=== PATIENT | female | born 1970 | race Caucasian/White ===

== ENCOUNTER 2016-09-19 02:13 | Emergency (ER) | payer BC ==
[~2016-09-19] VITALS: Ht 149.9 cm; Wt 65.5 kg
[2016-09-19 02:51] VITALS: BP 124/86; PULSE 58; RESP 18; TEMP 98.3; O2SAT 96
[2016-09-19 03:58] VITALS: BP 122/83; PULSE 55; RESP 16; O2SAT 97
[2016-09-19] MEDS ORDERED: CLON1 PO (04:46)
[2016-09-19] MEDS ORDERED: ATEN25TA PO (04:46)
[2016-09-19] MEDS ORDERED: ATOR20TA15 PO (04:46)
[2016-09-19] MEDS ORDERED: SOMA250T PO (04:46)
[2016-09-19] MEDS ORDERED: PROT40TA PO (04:46)
[2016-09-19] MEDS ORDERED: ASPI1TAB69 PO (04:46)
[2016-09-19] MEDS ORDERED: ALBUAER3 INH (04:46)
[2016-09-19] MEDS ORDERED: FLUO60TA PO (04:46)
[2016-09-19] MEDS ORDERED: ALVE80AE2 INH (04:46)
[2016-09-19] MEDS ORDERED: VIVE0.05 T-DERMAL (04:46)
[2016-09-19] MEDS ORDERED: AMPH1TAB29 PO (04:46)
[2016-09-19 04:47] VITALS: BP 124/86; PULSE 60; RESP 18; TEMP 98.3; O2SAT 96
[2016-09-19] MEDS ORDERED: KETOROLAC TROMETHAMINE 30 MG/ML (IVP) VIAL IV PUSH ONE (05:30)
[2016-09-19] MEDS ORDERED: ONDANSETRON HCL 4 MG/2 ML VIAL IV PUSH ONE (05:30)
[2016-09-19 06:01] VITALS: BP 126/82; PULSE 61; RESP 18; O2SAT 97
--- NOTE | 2016-09-19 06:01 | RADHPO ---
EXAM DATE/TIME: 09/19/2016 05:37 [facility] COMPARISON: No previous studies available for comparison. INDICATIONS : Cephalgia. RADIATION DOSE: 59.65 CTDIvol (mGy) MEDICAL HISTORY : None SURGICAL HISTORY : Hysterectomy. ENCOUNTER: Initial ACUITY: 2 weeks PAIN SCALE: 5/10 LOCATION: Bilateral cranial TECHNIQUE: Multiple contiguous axial images were obtained of the head. Using automated exposure control and adj ustment of the mA and/or kV according to patient size, radiation dose was kept as low as reasonably a chievable to obtain optimal diagnostic quality images. FINDINGS: CEREBRUM: The ventricles are normal for age. No evidence of midline shift, mass lesion, hemorrhage or acute in farction. No extra-axial fluid collections are seen. POSTERIOR FOSSA: The cerebellum and brainstem are intact. The 4th ventricle is midline. The cerebellopontine angle i s unremarkable. EXTRACRANIAL: The visualized portion of the orbits is intact. SKULL: The calvaria is intact. No evidence of skull fracture. CONCLUSION: Normal examination. Faisal Tom MD on September 19, 2016 at 5:59 Board Certified Radiologist. This report was verified electronically.
--- NOTE | 2016-09-19 06:32 | PD ---
HPI Chief Complaint: Headache Time Seen by Provider: 05:20 Travel History International Travel<30 days: No Contact w/Intl Traveler<30days: No Traveled to known affect area: No History of Present Illness HPI 46-year-old female presents to the emergency department for complaint of persistent headache. Patient has had headache on and off for the past 2 months but persistent for the past 2 weeks. Patient recently moved here from [place] where she used to have issues with bronchitis and pneumonia but since moving here to [place] is having issues with her sinuses. Due to courses of antibiotic amoxicillin and azithromycin. Patient denies any fever or chills. Headache is not sudden onset thunderclap or worst ever. Headache is 8/10 in intensity. Headache seems to bother her most daily starting around 4 PM. She does have strong family history of cerebral aneurysm affecting her father and multiple family members on her father's side. Patient also reports both parents with significant sinus issues. Patient is status post hysterectomy. Patient has had imaging study in the past to evaluate her aneurysm that has been negative. Patient's last CT was of her sinuses and 0 around the end of May and June that did not show any acute sinus disease. PFSH Past Medical History Narrative Medical ADHD arthritis dyslipidemia anxiety headaches immunoglobulin issue appendectomy hysterectomy no tobacco use fh --cerebral aneurysm; nursing notes reviewed ADHD: Yes Arthritis: Yes Anxiety: Yes High Cholesterol: Yes Diminished Hearing: No GERD: Yes Headaches: Yes Tetanus Vaccination: < 5 Years Influenza Vaccination: Yes ?: Not Past Surgical History Abdominal Surgery: Yes Appendectomy: Yes Section: Yes Gynecologic Surgery: Yes Hysterectomy: Yes Social History Alcohol Use: No Tobacco Use: No Substance Use: No Allergies-Medications (Allergen,Severity, Reaction): Coded Allergies: Compazine (Verified Allergy, Intermediate, Twitching, 09/19/16) Paxil (Verified Allergy, Intermediate, Rash, 09/19/16) Reported Meds & Prescriptions Reported Meds & Active Scripts Active Fioricet (Xpbnrsehod-Czhhqzyxhzxju-Linhkatq) 50-300-40 Mg Cap 1 Cap PO Q4H PRN Reported Adderall (Amphetamine-Dextroamphetamine) 5 Mg Tab 5 Mg PO DAILY Avoid late evening doses. Space doses at least 4 to 6 hours if more than once/day dosing. Vivelle-Dot Patch 84 HR (Estradiol) 0.05 Mg/24 Hr Patch 1 Patch T-DERMAL 2XWEEK Remove old patch and discard when new patch being placed. Change same days each week. Soma (Carisoprodol) 250 Mg Tab 250 Mg PO BID PRN Alvesco Inh (Ciclesonide Inh) 80 Mcg/Act Aero 80 Mcg INH BID Protonix (Pantoprazole Sodium) 40 Mg Tab 40 Mg PO BID Klonopin (Clonazepam) 1 Mg Tab 1 Mg PO TID Fluoxetine (Fluoxetine HCl) 60 Mg Tab 60 Mg PO DAILY Atorvastatin (Atorvastatin Calcium) 20 Mg Tab 20 Mg PO HS Atenolol 25 Mg Tab 25 Mg PO DAILY Aspirin 81 Mg Tabdr 81 Mg PO DAILY Proair Hfa 8.5 GM Inh (Albuterol Sulfate) 90 Mcg/Act Aer 2 Puff INH Q4-6H PRN 108 mcg/actuation Review of Systems Except as stated in HPI: all other systems reviewed are Neg General / Constitutional: No: Fever, Chills Eyes: Positive: Photophobia, No: Diploplia, Blurred Vision HENT: Positive: Headaches, No: Vertigo, Neck Stiffness, Neck Pain Cardiovascular: No: Chest Pain or Discomfort Respiratory: No: Shortness of Breath Gastrointestinal: No: Nausea, Vomiting, Abdominal Pain Musculoskeletal: No: Cramping Skin: No Rash Neurologic: Positive: Headache, No: Weakness, Dizziness, Syncope, Focal Abnormalities, Coordination Problem, Change in Mentation, Slurred Speech Psychiatric: No: Anxiety Hematologic/Lymphatic: No: Lymph Node Enlargement Physical Exam Narrative GENERAL: Well-developed well-nourished female in no acute distress no respiratory distress; GCS 15. SKIN: Warm and dry. HEAD: Atraumatic. Normocephalic. EYES: Pupils equal and round. No scleral icterus. No injection or drainage. ENT: No nasal bleeding or discharge. Mucous membranes pink and moist. NECK: Trachea midline. No JVD. CARDIOVASCULAR: Regular rate and rhythm. RESPIRATORY: No accessory muscle use. Clear to auscultation. Breath sounds equal bilaterally. GASTROINTESTINAL: Abdomen soft, non-tender, nondistended. Hepatic and splenic margins not palpable. MUSCULOSKELETAL: Extremities without clubbing, cyanosis, or edema. No obvious deformities. NEUROLOGICAL: Awake and alert. No obvious cranial nerve deficits. Motor grossly within normal limits. Five out of 5 muscle strength in the arms and legs. Normal speech. PSYCHIATRIC: Appropriate mood and affect; insight and judgment normal. Data Data Last Documented VS Vital Signs Date Time Temp Pulse Resp B/P Pulse Ox O2 Delivery O2 Flow Rate FiO2 09/19/16 09:25 65 16 109/73 09/19/16 07:06 97 Room Air 09/19/16 04:[address] Brain W/O Iv Contrast(Rout) (09/19/16 ) ^ Saline Lock (09/19/16 05:20) Ondansetron Inj (Zofran Inj) (09/19/16 05:30) Ketorolac Inj (Toradol Inj) (09/19/16 05:30) Basic Metabolic Panel (Bmp) (09/19/16 06:26) Cta Brain W Iv Contrast W 3d (09/19/16 ) Iohexol 350 Inj (Omnipaque 350 Inj) (09/19/16 07:46) Ecg Monitoring (09/19/16 08:32) Iv Access Insert/Monitor (09/19/16 08:32) Oximetry (09/19/16 08:32) Sodium Chloride 0.9% Flush (Ns Flush) (09/19/16 08:45) Diphenhydramine Inj (Benadryl Inj) (09/19/16 08:45) Metoclopramide Inj (Reglan Inj) (09/19/16 08:45) Labs Laboratory Tests Test 09/19/16 05:25 Sodium Level 142 MEQ/L Potassium Level 4.1 MEQ/L Chloride Level 104 MEQ/L Carbon Dioxide Level 29.1 MEQ/L Anion Gap 9 MEQ/L Blood Urea Nitrogen 14 MG/DL Creatinine 0.84 MG/DL Estimat Glomerular Filtration 72 ML/MIN Rate Random Glucose 69 MG/DL Calcium Level 9.1 MG/DL [facility] Medical Decision Making Medical Screen Exam Complete: Yes Emergency Medical Condition: Yes Medical Record Reviewed: Yes Interpretation(s) CT brain w/o: nad per reading radiologist Differential Diagnosis Acute sinusitis allergic rhinitis cephalgia ICH Narrative Course CT brain noncontrast administered IV fluids Zofran and Toradol At 6:35 AM headache is markedly improved "discomfort behind her eyes 6/10 intensity" discussed with patient LP for evaluation of intracranial bleed in view of headache duration intensity and recurrence. Patient's last evaluation for cerebral aneurysm in view of family history of intracranial bleed and cerebral aneurysm prostate 10 years ago; will proceed with CT brain with IV contrast; bmp ordered. signed over care to oncoming MD for pending CTa Scripts Iytsxusycr-Unmefvdeyltvj-Cqnswbbt (Fioricet)50-300-40 Mg Cap1 Cap PO Q4H PRN ( HEADACHE) #15 CAP Ref 0 Prov:Sam Horowitz MD 09/19/16 Nuria Luna MD Sep 19, 2016 06:32
[2016-09-19 07:06] VITALS: BP 119/77; PULSE 58; RESP 16; O2SAT 97
[2016-09-19 07:11] LABS: POTASSIUM 4.1 MEQ/L (3.5-5.1)
[2016-09-19 07:15] LABS: BICARBONATE 29.1 MEQ/L (21.0-32.0)
[2016-09-19] MEDS ORDERED: IOHEXOL 350 MG/ML 10 ML VIAL (for RAD DIAG) IV ONE (07:46)
--- NOTE | 2016-09-19 07:49 | PD ---
Data Data Last Documented VS Vital Signs Date Time Temp Pulse Resp B/P Pulse Ox O2 Delivery O2 Flow Rate FiO2 09/19/16 09:25 65 16 109/73 09/19/16 07:06 97 Room Air 09/19/16 04:[address] Brain W/O Iv Contrast(Rout) (09/19/16 ) ^ Saline Lock (09/19/16 05:20) Ondansetron Inj (Zofran Inj) (09/19/16 05:30) Ketorolac Inj (Toradol Inj) (09/19/16 05:30) Basic Metabolic Panel (Bmp) (09/19/16 06:26) Cta Brain W Iv Contrast W 3d (09/19/16 ) Iohexol 350 Inj (Omnipaque 350 Inj) (09/19/16 07:46) Ecg Monitoring (09/19/16 08:32) Iv Access Insert/Monitor (09/19/16 08:32) Oximetry (09/19/16 08:32) Sodium Chloride 0.9% Flush (Ns Flush) (09/19/16 08:45) Diphenhydramine Inj (Benadryl Inj) (09/19/16 08:45) Metoclopramide Inj (Reglan Inj) (09/19/16 08:45) Labs Laboratory Tests Test 09/19/16 05:25 Sodium Level 142 MEQ/L Potassium Level 4.1 MEQ/L Chloride Level 104 MEQ/L Carbon Dioxide Level 29.1 MEQ/L Anion Gap 9 MEQ/L Blood Urea Nitrogen 14 MG/DL Creatinine 0.84 MG/DL Estimat Glomerular Filtration 72 ML/MIN Rate Random Glucose 69 MG/DL Calcium Level 9.1 MG/DL [facility] Supervised Visit with BRENDA: No Narrative Course Patient care assumed from Dr. Nuria Luna at 0700, this patient has had a headache for approximately a week has not had a CAT scan as part of her workup. She states that her family member also had an aneurysm which ruptured. Dr. Newman ordered a CAT scan of the head as well as CT angiogram the brain both of which are negative. Discussed with the patient that these tests are both very good excluding subarachnoid hemorrhage benign 100% and the only way to be 100% us to do a spinal tap/lumbar puncture. After discussion of risks benefits competitions and alternatives of the procedure as well as missing undiagnosed sent no bleed she opts to defer lumbar puncture at this time. Patient's headache is somewhat returned while waiting the results of the CTA and she was given Benadryl and Reglan which completely relieved her headache. Discussed with her symptomatically management home and return to ED criteria. Follow-up with a primary care physician. Diagnosis Primary Impression: Headache Qualified Code: R51 - Nonintractable headache, unspecified chronicity pattern , unspecified headache type Referrals: Rubio Gupta MD Med/Other Pt SpecificInfo: Prescription(s) given Scripts Vudgvbrlje-Ytfrfdcbrmjnz-Ngvpddfn (Fioricet)50-300-40 Mg Cap1 Cap PO Q4H PRN ( HEADACHE) #15 CAP Ref 0 Prov:Sam Horowitz MD 09/19/16 Disposition: 01 DISCHARGE HOME Condition: Stable Sam Horowitz MD Sep 19, 2016 07:49
--- NOTE | 2016-09-19 08:23 | RADHPO ---
EXAM DATE/TIME: 09/19/2016 07:30 [facility] COMPARISON: No previous studies available for comparison. INDICATIONS : Persistent headache. Evaluate for aneurysm. Family history of cerebral aneurysm. IV CONTRAST: 85 cc Omnipaque 350 (iohexol) IV RADIATION DOSE: 42.01 CTDIvol (mGy) MEDICAL HISTORY : Hypercholesterolemia. SURGICAL HISTORY : Appendectomy. Hysterectomy. ENCOUNTER: Initial ACUITY: 2 weeks PAIN SCALE: 8/10 LOCATION: Bilateral cranial TECHNIQUE: Volumetric scanning was performed using a multi-row detector CT scanner. The data was post processed with a variety of visualization algorithms including full volume maximum intensity projection, multi -planar sliding thin slab reformation, curved planar reformation, and surface rendering techniques. Using automated exposure control and adjustment of the mA and/or kV according to patient size, radiat ion dose was kept as low as reasonably achievable to obtain optimal diagnostic quality images. FINDINGS: There is excellent visualization of the major intracranial arteries out to the second-order branch ve ssels. There is no evidence for aneurysm, vessel truncation or stenosis, and no evidence for vascula r malformation. CONCLUSION: No acute disease. Sam Sosa MD on September 19, 2016 at 8:17 Board Certified Radiologist. This report was verified electronically.
[2016-09-19] MEDS ORDERED: METOCLOPRAMIDE HCL 10 MG/2 ML VIAL IVP ONE (08:45)
[2016-09-19] MEDS ORDERED: SODIUM CHLORIDE 0.9% FLUSH 5 ML FLUSH IVF PRN (08:45)
[2016-09-19] MEDS ORDERED: diphenhydrAMINE HCL 50 MG/ML VIAL IVP ONE (08:45)
[2016-09-19] MEDS ORDERED: BUTA1CAP PO (09:14)
[2016-09-19 09:25] VITALS: BP 109/73
== END 2016-09-19 09:29 | disposition home or self-care (01) ==
LOC: PHED 02:13
DX: R51 Headache (principal)
CPT/HCPCS: 70450; 70496; 80048; 96374; 96375; 99284; J1200; J1885; J2405; J2765; Q9967

== ENCOUNTER 2017-07-17 06:22 | Observation (INO) | payer BC ==
[~2017-07-17] VITALS: Ht 147.3 cm; Wt 68.0 kg
[~2017-07-17 06:22] MED LIST: ALBUAER3 INH; ALVE80AE2 INH; AMPH1TAB29 PO; ASPI81TA23 PO; ATEN25TA PO; ATOR20TA15 PO; BACL20TA PO; BUTA1CAP PO; CLON1 PO; DIVA500T3 PO; FLUO60TA PO; FLUT50SP EACH NARE; METO1TAB42 PO; PROT40TA PO; RANI300T PO; SOMA250T PO; VIVE0.05 T-DERMAL
[2017-07-17] MEDS ORDERED: LACTATED RINGER'S 1000 ML IV PRN (07:00)
[2017-07-17] MEDS ORDERED: CHLORHEXIDINE GLUCONATE 2 % 1 PACK (2 CLOTHS) TOPICAL PRN (07:00)
[2017-07-17] MEDS ORDERED: METOPROLOL TARTRATE 25 MG TAB PO PRN (07:00)
[2017-07-17] MEDS ORDERED: AMPICILLIN/SULBAC 3 GM/NS 100 ML IV SCH ×2 (07:00)
[2017-07-17] MEDS ORDERED: SODIUM CHLORID 0.9% 500 ML IV PRN (07:00)
[2017-07-17] MEDS ORDERED: POVIDONE IODINE 5% (ANTISEPSIS KIT) 4 APPLICATIONS EACH NARE PRN (07:00)
[2017-07-17] MEDS ORDERED: LIDOCAINE 1%/EPINEPHrine 1:100,000 SOLN 20 ML VIAL ONE (07:08)
[2017-07-17] MEDS ORDERED: OXYMETAZOLINE HCL 0.05% 15 ML NASAL SPRAY ONE (07:09)
[2017-07-17] MEDS ORDERED: TIZA4CAP3 PO (08:25)
[2017-07-17] MEDS ORDERED: METHY10 PO (08:25)
[2017-07-17] MEDS ORDERED: FAMOTIDINE 20 MG/2 ML VIAL ONE (08:41)
[2017-07-17] MEDS ORDERED: MIDAZOLAM HCL 2 MG/2 ML VIAL ONE (08:41)
[2017-07-17 10:40] VITALS: PULSE 80
[2017-07-17] MEDS ORDERED: MORPHINE SULFATE 4 MG/ML INJ ONE (10:51)
[2017-07-17] MEDS ORDERED: HYDROmorphone HCL PF 0.5 MG/0.5 ML SYRINGE ONE (11:00)
[2017-07-17] MEDS ORDERED: HYDROmorphone HCL PF 1 MG/ML VIAL ONE (11:37)
[2017-07-17] MEDS ORDERED: LABETALOL HCL 100 MG/20 ML VIAL ONE (11:44)
[2017-07-17] MEDS: LACTATED RINGER'S 1000 ML INJ 1,000 ML IV SCH (13:00)
[2017-07-17 13:10] VITALS: O2SAT 99
[2017-07-17] MEDS: ACETAMINOPHEN/HYDROcodone 325 MG/5 MG TAB PO PRN ×2 (13:24→17:14)
[2017-07-17 13:30] VITALS: BP 145/90; PULSE 81; RESP 24; TEMP 97.6; O2SAT 97
[2017-07-17] MEDS ORDERED: ACETAMIN 325 MG/BUTALBITAL 50 MG/CAFFEINE 40 MG TAB PO PRN (15:00)
[2017-07-17 16:00] VITALS: BP 142/91; PULSE 85; RESP 20; TEMP 97.8; O2SAT 98
[2017-07-17] MEDS ORDERED: ALBUTEROL SULFATE 90 MCG/ACT HFA 18 GM INHALER INH PRN (16:00)
[2017-07-17] MEDS ORDERED: METHYLPHENIDATE HCL 10 MG TAB PO PRN (16:00)
[2017-07-17] MEDS ORDERED: FLUoxetine HCL 20 MG CAP PO PRN (16:00)
[2017-07-17] MEDS ORDERED: METOPROLOL SUCCINATE 25 MG EXTENDED RELEASE TAB PO PRN (16:00)
[2017-07-17] MEDS ORDERED: DIVALPROEX SODIUM E.R. 500 MG TAB PO PRN (16:00)
[2017-07-17] MEDS ORDERED: LORazepam 2 MG/ML VIAL IV PRN (16:00)
[2017-07-17] MEDS: AMPICILLIN/SULBAC 3 GM/NS 100 ML IV SCH ×2 (17:00)
[2017-07-17] MEDS: BACLOFEN 20 MG TAB PO SCH (17:31)
[2017-07-17] MEDS ORDERED: clonazePAM 1 MG TAB PO SCH (18:00)
[2017-07-17] MEDS: ONDANSETRON HCL 4 MG/2 ML VIAL IV PUSH PRN ×2 (19:25→19:27)
[2017-07-17 20:00] VITALS: BP 151/103; PULSE 82; RESP 20; TEMP 96.9; O2SAT 94
[2017-07-17 20:40] VITALS: O2SAT 99
[2017-07-17] MEDS ORDERED: CICLESONIDE 80 MCG INH SCH (21:00)
[2017-07-17] MEDS ORDERED: ATORVASTATIN 20 MG TAB PO SCH (21:00)
[2017-07-17] MEDS: FAMOTIDINE 20 MG TAB PO SCH (21:56)
[2017-07-18] VITALS: BP 138/96; PULSE 69; RESP 20; TEMP 96.5; O2SAT 98
[2017-07-18] MEDS: ACETAMINOPHEN/HYDROcodone 325 MG/5 MG TAB PO PRN ×3 (00:25→08:15)
[2017-07-18] MEDS: AMPICILLIN/SULBAC 3 GM/NS 100 ML IV SCH ×4 (00:29→08:16)
[2017-07-18] MEDS: LACTATED RINGER'S 1000 ML INJ 1,000 ML IV SCH (00:31)
[2017-07-18 06:33] VITALS: BP 149/87; PULSE 63; RESP 20; TEMP 99.1; O2SAT 99
[2017-07-18] MEDS: BACLOFEN 20 MG TAB PO SCH (08:17)
[2017-07-18] MEDS: FAMOTIDINE 20 MG TAB PO SCH (08:19)
[2017-07-18] MEDS ORDERED: METHYLPHENIDATE HCL 10 MG TAB PO SCH (09:00)
[2017-07-18] MEDS ORDERED: FLUoxetine HCL 20 MG CAP PO SCH (09:00)
[2017-07-18] MEDS ORDERED: ESTRADIOL 0.05 MG/24 HR PATCH T-DERMAL SCH (09:00)
[2017-07-18] MEDS ORDERED: ASPIRIN EC 81 MG TABEC PO SCH (09:00)
[2017-07-18] MEDS ORDERED: METOPROLOL SUCCINATE 25 MG EXTENDED RELEASE TAB PO SCH (09:00)
[2017-07-18] MEDS ORDERED: DIVALPROEX SODIUM E.R. 500 MG TAB PO SCH (09:00)
--- NOTE | 2017-07-26 07:16 | MP ---
cc: JAYMIE BOND M.D. DATE OF OPERATION July 17, [address] Jaymie Bond PREOPERATIVE DIAGNOSES 1. Nasal airway obstruction. 2. Nasal septal deviation. 3. Hypertrophy of inferior turbinates. 4. Chronic pansinusitis. 5. Chronic sinus headache. POSTOPERATIVE DIAGNOSIS 1. Nasal airway obstruction. 2. Nasal septal deviation. 3. Hypertrophy of inferior turbinates. 4. Chronic pansinusitis. 5. Chronic sinus headache. OPERATION PERFORMED 1. Open repair nasal septal fracture. 2. Bilateral submucosal resection of inferior turbinates. 3. Bilateral endoscopic total ethmoidectomy. 4. Bilateral endoscopic exploration of frontal sinus ducts with balloon sinuplasty. 5. Bilateral endoscopic maxillary sinusotomy. 6. Bilateral endoscopic sphenoidotomy. INDICATIONS Documented in the history and physical. DESCRIPTION OF OPERATION The patient was taken to OR #2 and placed in the supine position. Following induction of general anesthesia and intubation the nose was packed bilaterally with cotton pledgets saturated in 0.05% oxymetazoline. The nasal septal mucosa and the inferior turbinates were injected with a total of 8 mL of 1% Xylocaine with epinephrine 1:100,000. She was then prepped and draped for surgery. The packing was removed and the hemitransfixion incision was made in the left nasal vestibule and through this incision the septal mucosa was elevated bilaterally as far as the junction of the bony and cartilaginous septum. This revealed the quadrangular cartilage which showed evidence of old septal fracture and was maximally displaced bilaterally with numerous comminuted fragments displaced into the nasal airways. A cumulative area 1.5 x 2 cm was removed preserving 1.5 cm dorsal and caudal cartilaginous struts. The mucosa was then elevated from the bony septum and this was removed with Mouth Of Wilson-Mcduffie forceps and the Noah-Arredondo septal forceps. This was carried back as far as the sphenoid rostrum and from the floor of the nose up to within 5-mm of the cribriform plate. The incision of the septal mucosa was then closed with a running suture of 4-0 chromic and the mucosal layers of the septum were approximated to each other with a quilting stitch of 4-0 plain gut. The inferior turbinates were addressed next. They were fractured out medially and stab incisions were made along their inferior surfaces. Through these incisions the submucosal soft tissue was reduced using a curette preserving the conchal bone. The incision was then cauterized using the suction Bovie at 35 molina. The body of the inferior turbinates was reduced approximately 25%. The remnants of the inferior turbinates then we lateralized to the lateral nasal wall. From this point forward the operation was completed using endoscopic visualization. Additional injections lidocaine and epinephrine were made into the attachment to the middle turbinates as well as in the uncinate processes and the ethmoid cells. Addition of 10 mal was injected total bilaterally. The left side was addressed first beginning with amputation of the middle turbinate using through-cutting Blakesley forceps and the power microdebrider. This exposed the uncinate process and the ethmoid cells. The ethmoid cells were bluntly penetrated with Blakesley forceps and they were exonerated with blunt and power dissection back as far as the rostrum of the sphenoid. The maxillary ostium was then addressed next. It was probed with a 3-mm olive-tip suction and enlarged with Stammberger forceps. The sphenoid sinus was then probed to the natural ostium using a #10 suction. This was used to bluntly enlarge the ostium and it was enlarged further with upbiting Blakesley forceps. Examination with a 0 degrees scope shows the a sinus cavity to be patent. Lastly, on the left side the frontal sinus exploration was completed. Using the Acclarent technique the guidewire was advanced up into the frontal sinus and the balloon was advanced over the wire. It was inflated with water to a pressure of 12 atmospheres at the superior limit of the duct and at the inferior limit at the junction with the anterior ethmoids. The balloon was then removed and inspection of the duct with the 70-degree scope showed it to be patent all the way into the frontal sinus. The left sinuses were then irrigated and suctioned and packed with cotton pledgets saturated in oxymetazoline. The packs remained in place while the right side was operated in the same fashion beginning with the amputation of the middle turbinate, followed by exoneration of anterior and posterior ethmoids, enlargement of the maxillary sinus ostium and the sphenoid ostium and then balloon dilation of the frontal sinus duct. The right side was also irrigated and packed with cotton pledgets. These remained in place for a period of 3 minutes. All packing was then removed and was replaced with Stammberger sinus foam. The inferior nasal vaults were then packed with wound 5.5 cm Rapid Rhino packs each filled with 5 mL of air and the procedure was terminated. The patient was reversed from anesthesia and taken to Recovery in good condition. There were no complications. Blood loss was 300 mL. MD MADHURI Alicea/BALJINDER /2:14 PM /6:56 AM
== END 2017-07-18 09:00 | disposition home or self-care (01) ==
LOC: PHSDC 06:22 → PH3A 12:51
PROVIDERS: ADMIT Otolaryngology; ATTEND Otolaryngology
DX: J34.2 Deviated nasal septum (principal); J34.3 Hypertrophy of nasal turbinates; J32.4 Chronic pansinusitis; R51 Headache; J34.89 Other specified disorders of nose and nasal sinuses; G47.30 Sleep apnea, unspecified
CPT/HCPCS: 00160; 30140; 30520; 31255; 31256; 31276; 31287; 88305; 88311; 94762; 96365; 96366; 96375; 96376; G0378; J0295; J1170; J2060; J2250; J2270; J2405; J7120

== ENCOUNTER 2017-09-22 21:34 | Emergency (ER) | payer BC, OTHER ==
[~2017-09-22] VITALS: Ht 147.3 cm; Wt 68.6 kg
[~2017-09-22 21:34] MED LIST changes: -AMPH1TAB29 PO; -ATEN25TA PO; -FLUT50SP EACH NARE; +METHY10 PO; -PROT40TA PO; -SOMA250T PO; +TIZA4CAP3 PO
[2017-09-22 22:03] VITALS: BP 120/69; PULSE 64; RESP 20; TEMP 97.9; O2SAT 95
[2017-09-22 23:52] LABS: BILIRUBIN, URINE NEG (NEG); BLOOD, URINE NEG (NEG); GLUCOSE,URINE NEG (NEG); KETONE, URINE NEG (NEG); NITRITE,URINE NEG (NEG); PH, URINE 7.5 (5.0-8.5); URINE LEUKOCYTE ESTERASE NEG (NEG)
[2017-09-22 23:56] LABS: URINE COLOR YELLOW (YELLW/STRAW)
[2017-09-22 23:57] LABS: SQUAMOUS EPITHELIAL CELL URINE 0-5 /hpf (0-5)
[2017-09-23] MEDS ORDERED: PRED20 PO (02:40)
[2017-09-23] MEDS ORDERED: GUAISYP4 PO (02:40)
--- NOTE | 2017-09-23 02:45 | PD ---
HPI Chief Complaint: ENT Complaint Time Seen by Provider: 02:24 Travel History International Travel<30 days: No Contact w/Intl Traveler<30days: No Traveled to known affect area: No History of Present Illness HPI The patient is a 47-year-old female who complains of a sore throat has been coughing all week. She has some sharp, pleuritic chest pain with the coughing. She is not short of breath. She denies any fever. PFSH Past Medical History ADHD: Yes Arthritis: Yes Asthma: Yes Autoimmune Disease: Yes Anxiety: Yes Depression: No Heart Rhythm Problems: Yes Cancer: No Cardiovascular Problems: Yes (HEART PALPITATION) High Cholesterol: Yes Diabetes: No Diminished Hearing: No Endocrine: No GERD: Yes Genitourinary: No Headaches: Yes Hepatitis: No Hiatal Hernia: No Immune Disorder: Yes Musculoskeletal: Yes (BACK & NECK PAIN, DUE TO INJURY) Neurologic: Yes Psychiatric: Yes (CHRONIC ANXIETY, PANIC DISORDER) Reproductive: No Respiratory: Yes ((WEARS C-PAP)) Migraines: Yes Sleep Apnea: Yes Thyroid Disease: No LMP: 2012 Past Surgical History Abdominal Surgery: Yes (APPY, ) AICD: No Appendectomy: Yes Body Medical Devices: SCREW IN LEFT ANKLE, PINS IN TOES BILAT Cardiac Surgery: No Section: Yes Ear Surgery: No Endocrine Surgery: No Eye Surgery: No Genitourinary Surgery: No Gynecologic Surgery: Yes (TOTAL HYSTERECTOMY) Hysterectomy: Yes Joint Replacement: No Oral Surgery: Yes (REMOVAL WISDOM TEETH) Pacemaker: No Thoracic Surgery: No Social History Alcohol Use: No Tobacco Use: No Substance Use: No Allergies-Medications (Allergen,Severity, Reaction): Coded Allergies: paroxetine (Verified Allergy, Intermediate, Nausea/Vomiting, 09/22/17) prochlorperazine (Unverified Allergy, Intermediate, Twitching, 09/22/17) Reported Meds & Prescriptions Reported Meds & Active Scripts Active Fioricet (Rtyiawiadz-Sqlqjqsouwpye-Afdjsbjn) 50-300-40 Mg Cap 1 Cap PO Q4H PRN Reported Tizanidine (Tizanidine HCl) 4 Mg Cap 4 Mg PO DAILY Ritalin IR (Methylphenidate HCl) 10 Mg Tab 10 Mg PO DAILY Ranitidine (Ranitidine HCl) 300 Mg Tab 300 Mg PO DAILY Metoprolol Succinate ER 24 HR (Metoprolol Succinate) 25 Mg Tab 25 Mg PO DAILY Divalproex ER (Divalproex Sodium) 500 Mg Tab 500 Mg PO DAILY Baclofen 20 Mg Tab 20 Mg PO TID Aspirin EC (Aspirin) 81 Mg Tabdr 81 Mg PO DAILY Vivelle-Dot Patch 84 HR (Estradiol) 0.05 Mg/24 Hr Patch 1 Patch T-DERMAL 2XWEEK Remove old patch and discard when new patch being placed. Change same days each week. Alvesco Inh (Ciclesonide Inh) 80 Mcg/Act Aero 80 Mcg INH BID Klonopin (Clonazepam) 1 Mg Tab 1 Mg PO TID Fluoxetine (Fluoxetine HCl) 60 Mg Tab 60 Mg PO DAILY Atorvastatin (Atorvastatin Calcium) 20 Mg Tab 20 Mg PO HS Proair Hfa 8.5 GM Inh (Albuterol Sulfate) 90 Mcg/Act Aer 2 Puff INH Q4-6H PRN 108 mcg/actuation Review of Systems Except as stated in HPI: all other systems reviewed are Neg Physical Exam Narrative GENERAL: Well-nourished, well-developed patient in slight apparent distress with her cough and sore throat. Her vital signs are normal. SKIN: Focused skin assessment warm/dry. HEAD: Normocephalic. EYES: No scleral icterus. No injection or drainage. NECK: Supple, trachea midline. No JVD or lymphadenopathy. CARDIOVASCULAR: Regular rate and rhythm without murmurs, gallops, or rubs. RESPIRATORY: Breath sounds equal bilaterally. No accessory muscle use. Lungs clear to auscultation bilaterally. GASTROINTESTINAL: Abdomen soft, non-tender, nondistended. MUSCULOSKELETAL: No cyanosis, or edema. BACK: Nontender without obvious deformity. No CVA tenderness. ENT: The tympanic membranes are clear and the throat is slightly red without exudate or abscess. Data Data Last Documented VS Vital Signs Date Time Temp Pulse Resp B/P (MAP) Pulse Ox O2 Delivery O2 Flow Rate FiO2 09/22/17 22:03 97.9 64 20 120/69 (86) 95 Orders Orders Influenzae A/B Antigen (09/22/17 23:25) Strep Culture (Group A) (09/22/17 23:25) Urinalysis - C+S If Indicated (09/22/17 23:25) Group A Rapid Strep Screen (09/23/17 00:09) Labs Laboratory Tests Test 09/22/17 23:30 Urine Color YELLOW Urine Turbidity SLIGHT Urine pH 7.5 Urine Specific [place] 1.012 Urine Protein NEG mg/dL Urine Glucose (UA) NEG mg/dL Urine Ketones NEG mg/dL Urine Occult Blood NEG Urine Nitrite NEG Urine Bilirubin NEG Urine Leukocyte Esterase NEG Urine Squamous Epithelial Cells 0-5 /hpf Microscopic Urinalysis Comment CULT NOT INDICATED MDM Medical Decision Making Medical Screen Exam Complete: Yes Emergency Medical Condition: Yes Medical Record Reviewed: Yes Interpretation(s) The group A strep antigen is negative for group A strep antigen. Urinalysis is normal. The influenza A/B antigen is negative for flu a and flu B antigen. Differential Diagnosis Viral pharyngitis, strep pharyngitis, viral bronchitis, pneumonia, flu syndrome , urinary tract infection Narrative Course The patient appears to have a viral pharyngitis. She should benefit from prednisone 20 mg twice daily for 5 days and codeine containing cough syrup. Diagnosis Primary Impression: Viral syndrome Additional Impression: Viral pharyngitis Additional Instructions: Warm saltwater gargles often help with 1/2 teaspoon of salt to a large glass of water. Follow-up next week with your primary care physician. The prednisone is one tablet twice daily for 5 days. Do not drink alcohol or drive on the codeine consenting cough syrup until you know how it affects you. Med/Other Pt SpecificInfo: Prescription(s) given Scripts Guaifenesin-Codeine Liq (Guaifenesin AC Liq) 100-10 Mg/5 Ml Syrp 10 ML PO Q4H Y for COUGH, #1 BOTTLE 0 Refills Prov: Pa Corcoran MD 09/23/17 Prednisone (Prednisone) 20 Mg Tab 20 MG PO BID for 5 Days, #10 TAB 0 Refills Prov: Pa Corcoran MD 09/23/17 Disposition: 01 DISCHARGE HOME Condition: Stable Pa Corcoran MD Sep 23, 2017 02:45
[2017-09-23] MEDS ORDERED: predniSONE 20 MG TAB PO ONE (03:00)
[2017-09-23] MEDS ORDERED: guaiFENesin/CODEINE SYRUP 200 MG/20 MG/10 ML CUP PO ONE (03:00)
[2017-09-23 03:06] VITALS: BP 135/75; PULSE 85; RESP 18; TEMP 97.8; O2SAT 98
== END 2017-09-23 03:08 | disposition home or self-care (01) ==
LOC: PHED 21:34
DX: B34.9 Viral infection, unspecified (principal); J02.9 Acute pharyngitis, unspecified; J45.909 Unspecified asthma, uncomplicated; E78.00 Pure hypercholesterolemia, unspecified; Z88.8 Allergy status to other drugs, medicaments and biological substances
CPT/HCPCS: 81001; 87081; 87804; 87880; 99283; J7512

== ENCOUNTER 2018-01-30 06:30 | Day surgery (SDC) | payer OTHER ==
[2018-01-30] VITALS (8 sets, daily range): BP systolic 91–115; BP diastolic 44–78; PULSE 58–68; RESP 16–20; TEMP 98.6; O2SAT 93–98
[~2018-01-30] VITALS: Ht 147.3 cm; Wt 65.0 kg
[~2018-01-30 06:30] MED LIST changes: +GUAISYP4 PO; +PRED20 PO
[2018-01-30] MEDS ORDERED: LIDOCAINE HCL 1% 10 ML VIAL SQ ONE (06:31)
[2018-01-30] MEDS ORDERED: FAMO1TAB73 PO (06:51)
[2018-01-30] MEDS ORDERED: LEVO5TAB8 PO (06:52)
[2018-01-30 07:42] LABS: PROTHROMBIN TIME - PATIENT 10.4 SEC (9.8-11.6)
[2018-01-30 07:43] LABS: AUTOMATED NEUTROPHIL # 2.8 TH/MM3 (1.8-7.7); BASOPHIL % 0.4 % (0.0-2.0); EOSINOPHIL # 0.3 TH/MM3 (0-0.4); EOSINOPHIL % 4.9 % (0.0-4.0); HEMOGLOBIN 13.5 GM/DL (11.6-15.3); LYMPH % 43.5 % (9.0-44.0); LYMPHOCYTE # 3.1 TH/MM3 (1.0-4.8); MEAN CELL VOLUME 94.3 FL (80.0-100.0); MEAN CORPUSCULAR HEMOGLOBIN 31.1 PG (27.0-34.0); MEAN PLATELET VOLUME 7.8 FL (7.0-11.0); MONO % 11.3 % (0.0-8.0); MONOCYTE # 0.8 TH/MM3 (0-0.9); NEUT % 39.9 % (16.0-70.0); PLATELET COUNT 264 TH/MM3 (150-450); RED BLOOD COUNT 4.35 MIL/MM3 (4.00-5.30); RED CELL DISTRIBUTION WIDTH 13.4 % (11.6-17.2); WHITE BLOOD COUNT 7.1 TH/MM3 (4.0-11.0)
[2018-01-30] MEDS ORDERED: MIDAZOLAM HCL 5 MG/5 ML VIAL ONE (08:20)
[2018-01-30] MEDS ORDERED: fentaNYL CITRATE 250 MCG/5 ML AMP ONE (08:20)
--- NOTE | 2018-01-30 12:15 | RADRPT ---
EXAM DATE: 01/30/2018 12:08 PM EDT AGE/SEX: 47 years / Female INDICATIONS: Abdominal pain after right renal aspiration CLINICAL DATA: This is the patient's initial encounter. Patient reports that signs and symptoms have been present for 1 day and indicates a pain score of 6/10. MEDICAL/SURGICAL HISTORY: Cardiovascular disease. Appendectomy. Hysterectomy. ORAL CONTRAST: No oral contrast ingested. RADIATION DOSE: 6.76 CTDI (mGy) COMPARISON: [facility], CT ABDOMEN AND PELVIS W AND W/O CONTRAST, 01/10/2018. [facility], CT GUIDED RENAL CYST ASPIR/INJ, 01/30/2018. . TECHNIQUE: Multiple contiguous axial images were obtained through the abdomen. Images were obtained using multiple row detector helical technique. No oral contrast ingested. Using automated exposure co ntrol and adjustment of the mA and/or kV according to patient size, radiation dose was kept as low as reasonably achievable to obtain optimal diagnostic quality images. DICOM format image data is avail able electronically for review and comparison. Lack of IV contrast limits the diagnosis for certain o rgan pathology. FINDINGS: Lower Lungs: The visualized lower lungs are clear. Liver: The liver has a homogeneous density without space-occupying lesion. There is no dilation of th e biliary tree. Gallbladder unremarkable. Spleen: Homogeneous density without enlargement. Pancreas: Unremarkable without mass or calcification. Kidneys: Normal in size and shape. No evidence of mass or hydronephrosis. The previously noted large right renal cyst has been completely drained. There is no evidence of a perinephric hematoma. There is no free fluid or loculated fluid collections in the right renal fossa. Adrenal Glands: Unremarkable. Aorta/Retroperitoneum: The aorta is grossly unremarkable without aneurysmal dilation. No paraaortic or retrocrural adenopathy. Bowel/Mesentery: The bowel loops are grossly unremarkable. Abdominal Wall: Intact. Bony Structures: Unremarkable. CONCLUSION: 1. Status post complete drainage of the previously noted prominent right renal cyst. 2. Otherwise, the CT scan of the abdomen is unremarkable. Electronically signed by: Baron Adam MD 01/30/2018 12:14 PM EDT
--- NOTE | 2018-01-30 13:40 | RADRPT ---
EXAM DATE: 01/30/2018 1:25 PM EDT AGE/SEX: 47 years / Female INDICATIONS: Right renal cyst aspiration. CLINICAL DATA: This is the patient's initial encounter. Patient reports that signs and symptoms have been present for 1 day and indicates a pain score of 0/10. MEDICAL/SURGICAL HISTORY: Cardiovascular disease. Appendectomy. Hysterectomy. RADIATION DOSE: CTDI (mGy) COMPARISON: No prior exams available for comparison. PROCEDURE : The risks, benefits and alternatives to the procedure were explained and verbal and written consent w as obtained. Using automated exposure control and adjustment of the mA and/or kV according to patien t size, radiation dose was kept as low as reasonably achievable to obtain optimal diagnostic quality images. The site was prepped in sterile fashion. Full sterile technique was used, including cap, ma sk, sterile gloves and gown and a large sterile sheet. Hand hygiene and 2% chlorhexidine and/or beta dine/alcohol prep was utilized per protocol for cutaneous antisepsis. The skin and subcutaneous tiss ues were infiltrated with local anesthetic solution. DICOM format image data is available electronic ally for review and comparison. FINDINGS: Under CT guidance 6 [place] catheter was placed in the cystic mass right kidney. 70 cc of clear straw- colored fluid removed and sent for cytology. This apparent cyst was sclerosed with Betadine. Follow-u p CT scan reveals no hemorrhage or residual cyst. CONCLUSION: 1. Uncomplicated drainage and sclerosis of a right renal cyst. 2. Patient was encouraged to keep a pain walled to see if this is indeed the source of her pain. Electronically signed by: David Martinez MD 01/30/2018 1:39 PM EDT
== END 2018-01-30 13:35 | disposition home or self-care (01) ==
LOC: HRAD 06:30 → HRIP 06:30 → HRAD 13:35
PROVIDERS: ATTEND Urology
DX: N28.1 Cyst of kidney, acquired (principal); I25.10 Atherosclerotic heart disease of native coronary artery without angina pectoris; I49.9 Cardiac arrhythmia, unspecified; G47.30 Sleep apnea, unspecified; Z01.818 Encounter for other preprocedural examination
CPT/HCPCS: 50390; 74150; 77012; 85025; 85610; 85730; 88112; 88305; 99152; 99153; C1729; J2250; J3010; 82570; 99151